=== PATIENT | female | born 1995 | race Caucasian/White ===

== ENCOUNTER 2018-01-18 07:20 | Emergency (ER) | payer BC, OTHER ==
[~2018-01-18] VITALS: Ht 162.6 cm; Wt 81.6 kg
[2018-01-18] MEDS ORDERED: ONDANSETRON 4 MG/2 ML (SDV) Z0FRAN IVP ONE (07:30)
[2018-01-18] MEDS ORDERED: LACTATED RINGERS 1,000 ML IV ONE (07:30)
[2018-01-18 07:50] LABS: BASOPHILS % (AUTO) 0 % (0-10); EOSINOPHILS % (AUTO) 0 % (0-10); HEMATOCRIT 39 % (35-52); HEMOGLOBIN 13.3 G/DL (11.5-16.0); LYMPHOCYTES # (AUTO) 1.1 X 10^3 (1.0-4.0); LYMPHOCYTES % (AUTO) 7 % (12-44); MEAN CORPUSCULAR HEMOGLOBIN 28 PG (25-34); MEAN CORPUSCULAR HGB CONC 34 G/DL (32-36); MEAN CORPUSCULAR VOLUME 83 FL (80-99); MEAN PLATELET VOLUME 9.2 FL (7.4-10.4); MONOCYTES # (AUTO) 1.1 X 10^3 (0.0-1.0); MONOCYTES % (AUTO) 7 % (0-12); NEUTROPHILS # (AUTO) 13.5 X 10^3 (1.8-7.8); NEUTROPHILS % (AUTO) 86 % (42-75); PLATELET COUNT 324 10^3/uL (130-400); RED BLOOD COUNT 4.73 10^6/uL (4.35-5.85); RED CELL DISTRIBUTION WIDTH 13.4 % (10.0-14.5); WHITE BLOOD COUNT 15.7 10^3/uL (4.3-11.0)
--- NOTE | 2018-01-18 08:00 | ED GI ---
General Chief Complaint: Abdominal/GI Problems Stated Complaint: VOMITING Source of Information: Patient Exam Limitations: No Limitations History of Present Illness Date Seen by Provider: Jan 18, 2018 Time Seen by Provider: 07:57 Initial Comments This 22-year-old young lady presents to the emergency room with persistent nausea and vomiting for several hours this morning. She denies fever or pain. She took some Pepto-Bismol which did not help. She denies . She is noted to be tachycardic on the monitor during assessment. She did drink a little bit of alcohol yesterday. Allergies and Home Medications Allergies Coded Allergies: No Known Drug Allergies (Unverified , 01/18/18) Home Medications Ondansetron 4 Mg Tab.rapdis, 4 MG SL Q4H PRN for NAUSEA/VOMITING Prescribed by: ERMELINDA HARPER on 01/18/18 0840 Patient Home Medication List Home Medication List Reviewed: Yes Review of Systems Review of Systems Constitutional: no symptoms reported EENTM: No Symptoms Reported Respiratory: No Symptoms Reported Cardiovascular: See HPI Gastrointestinal: See HPI Genitourinary: No Symptoms Reported Musculoskeletal: no symptoms reported Skin: no symptoms reported Psychiatric/Neurological: No Symptoms Reported Endocrine: No Symptoms Reported Hematologic/Lymphatic: No Symptoms Reported Past [id number] Hx Past Med/Social Hx: Reviewed and Corrections made Patient Social History Alcohol Use: Rarely Uses Recreational Drug Use: No Past Medical History Surgeries: Yes Physical Exam Vital Signs Vital Signs - First Documented 01/18/18 07:57 Temp 98.2 Pulse 113 Resp 16 B/P (MAP) 107/62 (77) Pulse Ox 97 Capillary Refill : Height/Weight/BMI Height: '" Weight: lbs. oz. 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, no motor/sensory deficits, alert, normal mood/affect, oriented x 3 Skin: normal color, warm/dry Progress/Results/Core Measures Results/Orders Lab Results Laboratory Tests Test 01/18/18 07:40 01/18/18 07:50 Range/Units White Blood Count 15.7 H 4.3-11.0 10^3/uL Red Blood Count 4.73 4.35-5.85 10^6/uL Hemoglobin 13.3 11.5-16.0 G/DL Hematocrit 39 35-52 % Mean Corpuscular Volume 83 80-99 FL Mean Corpuscular Hemoglobin 28 25-34 PG Mean Corpuscular Hemoglobin Concent 34 32-36 G/DL Red Cell Distribution Width 13.4 10.0-14.5 % Platelet Count 324 130-400 10^3/uL Mean Platelet Volume 9.2 7.4-10.4 FL Neutrophils (%) (Auto) 86 H 42-75 % Lymphocytes (%) (Auto) 7 L 12-44 % Monocytes (%) (Auto) 7 0-12 % Eosinophils (%) (Auto) 0 0-10 % Basophils (%) (Auto) 0 0-10 % Neutrophils # (Auto) 13.5 H 1.8-7.8 X 10^3 Lymphocytes # (Auto) 1.1 1.0-4.0 X 10^3 Monocytes # (Auto) 1.1 H 0.0-1.0 X 10^3 Eosinophils # (Auto) 0.0 0.0-0.3 10^3/uL Basophils # (Auto) 0.0 0.0-0.1 10^3/uL Neutrophils % (Manual) 90 % Lymphocytes % (Manual) 6 % Monocytes % (Manual) 3 % Eosinophils % (Manual) 0 % Basophils % (Manual) 0 % Band Neutrophils 1 % Blood Morphology Comment NORMAL Sodium Level 141 135-145 MMOL/L Potassium Level 3.7 3.6-5.0 MMOL/L Chloride Level 110 H 98-107 MMOL/L Carbon Dioxide Level 19 L 21-32 MMOL/L Anion Gap 12 5-14 MMOL/L Blood Urea Nitrogen 9 7-18 MG/DL Creatinine 0.72 0.60-1.30 MG/DL Estimat Glomerular Filtration Rate > 60 BUN/Creatinine Ratio 13 Glucose Level 103 70-105 MG/DL Calcium Level 9.1 8.5-10.1 MG/DL Corrected Calcium 8.9 8.5-10.1 MG/DL Magnesium Level 2.0 1.8-2.4 MG/DL Total Bilirubin 0.8 0.1-1.0 MG/DL Aspartate Amino Transf (AST/SGOT) 17 5-34 U/L Alanine Aminotransferase (ALT/SGPT) 18 0-55 U/L Alkaline Phosphatase 81 40-136 U/L Total Protein 7.4 6.4-8.2 GM/DL Albumin 4.3 3.2-4.5 GM/DL Serum Test, Qualitative NEGATIVE NEGATIVE My Orders Orders - ERMELINDA BALDERRAMA MD Saline Lock/Iv-Start (01/18/18 07:30) Lactated Ringers (Lr 1000 Ml Iv Solution (01/18/18 07:30) Cbc With Automated Diff (01/18/18 07:30) Comprehensive Metabolic Panel (01/18/18 07:30) Hcg,Qualitative Serum (01/18/18 07:30) Magnesium (01/18/18 07:30) Ondansetron Injection (Zofran Injectio (01/18/18 07:30) Manual Differential (01/18/18 07:40) Medications Given in ED Current Medications Medications Dose Ordered Sig/Rain Route Start Time Stop Time Status Last Admin Dose Admin Lactated Ringer's 1,000 ml @ 0 mls/hr Q0M ONCE IV 01/18/18 07:30 01/18/18 07:32 DC 01/18/18 07:52 1,000 MLS/HR Ondansetron HCl 8 mg ONCE ONCE IVP 01/18/18 07:30 01/18/18 07:32 DC 01/18/18 07:52 8 MG Vital Signs/I&O 01/18/18 01/18/18 07:57 08:52 Temp 98.2 98.6 Pulse 113 100 Resp 16 16 B/P (MAP) 107/62 (77) 93/53 (66) Pulse Ox 97 97 Progress Progress Note : Progress Note Patient was treated with IV Zofran and 1 L of LR. Heart rate improved significantly and nausea resolved. Patient had leukocytosis but denied fever or signs of acute infectious illness such as dysuria, cough, etc. Leukocytosis was likely due to vomiting. She had no further vomiting or diarrhea in the ER. Departure Impression Primary Impression: Nausea vomiting and diarrhea Additional Impression: Tachycardia Disposition: 01 HOME, SELF-CARE Condition: Improved Departure-Patient Inst. Decision time for Depature: 08:38 Referrals: NO,LOCAL PHYSICIAN (PCP) Primary Care Physician Patient Instructions: Nausea and Vomiting, Adult Add. Discharge Instructions: Observe a clear liquid diet throughout the day today. Gradually advance your diet with small quantities of bland food as tolerated later this evening or tomorrow. Avoid milk products until diarrhea has been resolved for at least 24 hours. For nausea and vomiting you may use Zofran (ondansetron) as prescribed. Return to care if you have worsening symptoms. All discharge instructions reviewed with patient and/or family. Voiced understanding. Scripts Ondansetron (Ondansetron Odt) 4 Mg Tab.rapdis 4 MG SL Q4H PRN for NAUSEA/VOMITING, #10 TAB Prov: ERMELINDA BALDERRAMA MD 01/18/18 Work/School Note: School/Childcare Release Date Seen in the Emergency Department: Jan 18, 2018 Return to School: Jan 21, 2018 Restrictions: No Restrictions ERMELINDA BALDERRAMA MD Jan 18, 2018 08:00
[2018-01-18 08:07] LABS: ALANINE AMINOTRANSFERASE 18 U/L (0-55); ALBUMIN 4.3 GM/DL (3.2-4.5); ALKALINE PHOSPHATASE 81 U/L (40-136); BILIRUBIN,TOTAL 0.8 MG/DL (0.1-1.0); BUN/CREATININE RATIO 13; CALCIUM 9.1 MG/DL (8.5-10.1); CARBON DIOXIDE 19 MMOL/L (21-32); CHLORIDE 110 MMOL/L (98-107); CREATININE SERUM 0.72 MG/DL (0.60-1.30); GFR ESTIMATED > 60; GLUCOSE 103 MG/DL (70-105); POTASSIUM 3.7 MMOL/L (3.6-5.0); SODIUM 141 MMOL/L (135-145); TOTAL PROTEIN 7.4 GM/DL (6.4-8.2)
[2018-01-18 08:24] LABS: BAND NEUTROPHILS 1 %; BASOPHILS % (MANUAL) 0 %; EOSINOPHILS % (MANUAL) 0 %; LYMPHOCYTES % (MANUAL) 6 %; MONOCYTES % (MANUAL) 3 %; NEUTROPHILS % (MANUAL) 90 %; RBC MORPH NORMAL
[2018-01-18] MEDS ORDERED: ONDA4TAB11 SL (08:40)
[2018-01-18 08:52] VITALS: BP 93/53
== END 2018-01-18 09:10 | disposition home or self-care (01) ==
LOC: ER 07:22
DX: R11.2 Nausea with vomiting, unspecified (principal); R19.7 Diarrhea, unspecified; R00.0 Tachycardia, unspecified
CPT/HCPCS: 36415; 80053; 83735; 84703; 85007; 85027; 96361; 96374; 99282